=== PATIENT | female | born 1955 | race Caucasian/White ===

== ENCOUNTER → 2024-02-15 | Day surgery (SDC) | payer BC ==
--- NOTE | 2024-02-22 14:21 | MM ---
Reason for Exam: Post Procedure Mammogram. Risk Values: Perla 5 year model risk: 1.1%. NCI Lifetime model risk: 4.0%. Tissue Density: Left: The breasts are heterogeneously dense, which may obscure small masses. Pathology Description: Location: 3 o'clock. Marker Left Behind. Needle Type: Mammotome Cores: 6 Gauge: 13 The procedure of ultrasound guided core biopsy was explained to the patient. Benefits, alternatives, and risks were discussed. An informed consent was then obtained. The 9 mm hypoechoic mass at the 3:00 position left breast is identified and targeted for biopsy. The patient was placed in supine positioning for imaging and for the procedure. The overlying skin was prepped and draped in usual sterile fashion. Lidocaine was used as anesthetic into the skin and subcutaneous tissue up to area of concern in the left breast. Under ultrasound guidance, a 13-gauge vacuum-assisted mammotome Elite biopsy gun device was used to obtain 6 core samples. Following this, a butterfly clip was left in lesion. The patient tolerated the procedure well without any immediate complication. The patient was kept in the radiology department for short stay after the procedure and then discharged home in stable condition. Postprocedure mammogram: The patient was transferred to mammography for physician ordered post procedure mammogram for clip placement verification. Post procedure mammogram shows in satisfactory position. Patient with previous postsurgical and posttreatment change. IMPRESSION: Successful, uncomplicated ultrasound guided core biopsy of 3:00 left breast mass in patient with personal history of left breast cancer. Full pathology results to follow. Pathology Results: Result: Malignant, Invasive ductal carcinoma. Pathology and radiology were reviewed. Findings are concordant. LEFT BREAST, 3:00, NEEDLE CORE BIOPSY: Invasive poorly differentiated ductal carcinoma (Grade 3). See Surgical Pathology Cancer Case Summary. Overall Assessment: Malignant Assessment: MG diagnostic mammo LT wo CAD. - Left: Known biopsy proven malignancy, BI-RAD 6. Management: Surgical Consultation of the left breast. Electronically signed and approved by: Jessica Benitez M.D. Radiologist
== END ==
LOC: RADUSWWP 12:33
PROVIDERS: ATTEND Family Medicine
DX: C50.812 Malignant neoplasm of overlapping sites of left female breast (principal)
CPT/HCPCS: 88305; 88342; 88341; 77065; 19083; A4648

== ENCOUNTER → 2024-02-26 | Outpatient (CLI) | payer BC ==
--- NOTE | 2024-02-26 13:03 | P.GSCN ---
History of Present Illness Consult date: 02/26/24 Reason for Consult: left breast invasive ductal cancer Requesting physician: Girish Rogers History of present illness: Katherin is a 68 year old female seen in consultation for Dr. Rogers regarding biopsy proven left breast cancer. She had a bilateral mammogram on 01-06-2024. This led to a she had a left breast diagnostic mammogram on 01-22-2024. This revealed a 1 cm nodular opacity involving the outer quadrant position of the breast and ultrasound was recommended. The left breast ultrasound was performed on 01-27-2024. This revealed a hypoechoic irregular nodule at the 3 o'clock position 4 cm from the nipple. This was approximately 1 cm in greatest dimension. An ultrasound-guided core biopsy was performed of this on 02-15-2024. Pathology revealed an invasive poorly differentiated ductal carcinoma which was ER/ID positive and HER2 equivocal. It is grade 3. The patient is not complaining of any new lumps masses or nodules of concern in either breast. She tolerated the biopsy without any difficulty. She had a left breast cancer about 15 years ago, at about the age of 53 she was living in [place] at that time. She underwent a lumpectomy adn re-excision followed by radiation. She also did 5 years of tamoxifen, which ended many years ago. She did not have any chemotherapy. She does not have any medical records with respect to this. She has done well up until recently with the recent biopsy. She has never had other surgery on her breast. She has not had any recent trauma or infection of her breast. Caffeine: 2 cups/day nicotine: none/ stopped 40 years ago; used to smoke < 1 pack/week chocolate: weekly BCP: 3 years hormones: none Family History: paternal aunt: breast cancer Hormonal HIstory: menarche: 13 PO menopause: about 52 Surgical History: left breast lumpectomy Medical History: none Social History: nicotine: none alcohol: red wine daily drugs: none Review of Systems - Constitutional Reports sweats - EENT Eyes: denies blurred vision Ears: left: decreased hearing, deny: tinnitus Ears, nose, mouth and throat: Denies dysphagia - Breasts bilateral: as per HPI - Cardiovascular Denies chest pain, Denies shortness of breath - Respiratory Denies cough, Denies 7 - Gastrointestinal Reports constipation, Reports diarrhea - Genitourinary Genitourinary: Denies dysuria, Denies hematuria Menstruation: Reports postmenopausal - Musculoskeletal Reports myalgias - Integumentary Denies rash, Denies unusual bruising - Neurological Denies headaches, Denies syncope - Psychiatric Reports anxiety - Endocrine Reports fatigue - Hematologic/Lymphatic Reports as per HPI - Allergic/Immunologic Reports seasonal allergies Past Medical History Past Medical History: No Reported History, Cancer Additional Past Medical History / Comment(s): postional vertigo, seasonal allergies. 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 Right breast biopsy benign. Oral surgeries Past Anesthesia/Blood Transfusion Reactions: No Reported Reaction Past Psychological History: Anxiety Smoking Status: Former smoker Past Alcohol Use History: Occasional Additional Past Alcohol Use History / Comment(s): quit smoking in her 20's Past Drug Use History: None Reported Medications and Allergies Home Medications Medication Instructions Recorded Confirmed Type ALPRAZolam [Xanax] 0.25 mg PO BID PRN 02/08/24 02/08/24 History PARoxetine HCL [Paxil] 20 mg PO DAILY 02/08/24 02/26/24 History Allergies Allergy/AdvReac Type Severity Reaction Status Date / Time No Known Allergies Allergy Verified 02/26/24 12:30 Surgical - Exam - General no distress - Eyes normal ocular movement - Neck trachea midline - Respiratory normal respiratory effort, clear to auscultation - Cardiovascular Rhythm: regular Heart Sounds: normal: S1, S2 - Abdomen Abdomen: soft, non tender, no guarding, no rigid, no rebound - Integumentary normal turgor - Neurologic no disoriented, no combative - Musculoskeletal normal gait - Psychiatric oriented to time, oriented to person, oriented to place, speech is normal, memory intact Breast Exam: BRA: 36A inspection: post op changes left breast/ assymetry related to prior left breast cancer palpation: right breast: Multi positional exam fibrocystic changes no dominant masses or nodules of concern Right axilla: No adenopathy of concern Left breast: Postsurgical and radiation changes well-healed scar from prior lumpectomy no dominant masses or nodules of concern appreciated Puncture site from recent core biopsy clean and dry Left axilla: No adenopathy of concern Results Mammogram and ultrasound personally reviewed with Dr. Benitez There is approximately a 1 cm lesion in the lateral upper outer quadrant area of the left breast corresponding with that which was biopsied/invasive ductal carcinoma ER/ID positive HER2 equivocal Grade 3 Assessment and Plan Assessment: Impression: Left breast invasive ductal carcinoma T1 N0 M0 ER positive ID positive HER2 question G2 Prior left breast cancer treated with lumpectomy/radiation therapy/tamoxifen records are not available this was over 15 years ago Plan: Presentation of case at tumor board Consider genetic testing Will discuss treatment options with the patient CC: Dr. Rogers
[2024-02-26 13:23] VITALS: BP 149/80; PULSE 90; RESP 17; TEMP 97.9
== END ==
LOC: WWCWWP 11:30
PROVIDERS: ATTEND Surgery
DX: C50.912 Malignant neoplasm of unspecified site of left female breast (principal); N63.41 Unspecified lump in right breast, subareolar; Z17.0 Estrogen receptor positive status [ER+]; Z80.3 Family history of malignant neoplasm of breast; Z87.891 Personal history of nicotine dependence; Z98.890 Other specified postprocedural states

== ENCOUNTER → 2024-03-04 | Outpatient (CLI) | payer BC ==
--- NOTE | 2024-03-04 13:23 | USB ---
Reason for Exam: Clinical finding. Patient History: Breast cancer, left, age 68. 02/15/2024, Malignant US biopsy breast VAD LT on the left side. Technique: Method: Targeted. Prior Study Comparison: 02/15/2024 Left MG diagnostic mammo LT wo CAD., [facility]. Findings: The axilla of the left breast was scanned. No solid or cystic masses are identified. Normal-appearing left axillary lymphadenopathy is present. No suspicious cortex. Overall Assessment: Negative, BI-RAD 1 Management: Surgical Consultation of both breasts. A clinical breast exam by your physician is recommended on an annual basis and results should be correlated with mammographic findings. This exam should not preclude additional follow-up of suspicious palpable abnormalities. Results were given to the patient verbally at the time of exam. Electronically signed and approved by: Hany Boggs D.O. Radiologis
== END | disposition home or self-care (01) ==
LOC: RADUSWWP 12:58
PROVIDERS: ATTEND Surgery
DX: N63.20 Unspecified lump in the left breast, unspecified quadrant (principal)

== ENCOUNTER → 2024-04-07 | Outpatient (CLI) | payer BC, MEDICARE ==
[2024-04-07 13:57] VITALS: BP 168/92; PULSE 70; RESP 17; TEMP 97.9
--- NOTE | 2024-04-07 14:18 | P.BCPN ---
Subjective Progress Note Date: 04/07/24 History of Present Illness Consult date: 04-07-24 Reason for Consult: left breast invasive ductal cancer Requesting physician: Girish Rogers History of present illness: Katherin is a 68 year old female seen in consultation for Dr. Rogers regarding biopsy proven left breast cancer. She had a bilateral mammogram on 01-06-2024. This led to a she had a left breast diagnostic mammogram on 01-22-2024. This revealed a 1 cm nodular opacity involving the outer quadrant position of the breast and ultrasound was recommended. The left breast ultrasound was performed on 01-27-2024. This revealed a hypoechoic irregular nodule at the 3 o'clock position 4 cm from the nipple. This was approximately 1 cm in greatest dimension. An ultrasound-guided core biopsy was performed of this on 02-15-2024. Pathology revealed an invasive poorly differentiated ductal carcinoma which was ER/W[place] positive and HER2 equivocal. It is grade 3. The patient is not complaining of any new lumps masses or nodules of concern in either breast. She tolerated the biopsy without any difficulty. She had a left breast cancer about 15 years ago, at about the age of 53 she was living in [place] at that time. She underwent a lumpectomy adn re-excision followed by radiation. She also did 5 years of tamoxifen, which ended many years ago. She did not have any chemotherapy. She does not have any medical records with respect to this. She has done well up until recently with the recent biopsy. She has never had other surgery on her breast. She has not had any recent trauma or infection of her breast. Caffeine: 2 cups/day nicotine: none/ stopped 40 years ago; used to smoke < 1 pack/week chocolate: weekly BCP: 3 years hormones: none Family History: paternal aunt: breast cancer Hormonal HIstory: menarche: 13 PO menopause: about 52 Surgical History: left breast lumpectomy Medical History: none Social History: nicotine: none alcohol: red wine daily drugs: none Review of Systems - Constitutional Reports sweats - EENT Eyes: denies blurred vision Ears: left: decreased hearing, deny: tinnitus Ears, nose, mouth and throat: Denies dysphagia - Breasts bilateral: as per HPI - Cardiovascular Denies chest pain, Denies shortness of breath - Respiratory Denies cough - Gastrointestinal Reports constipation, Reports diarrhea - Genitourinary Genitourinary: Denies dysuria, Denies hematuria Menstruation: Reports postmenopausal - Musculoskeletal Reports myalgias - Integumentary Denies rash, Denies unusual bruising - Neurological Denies headaches, Denies syncope - Psychiatric Reports anxiety - Endocrine Reports fatigue - Hematologic/Lymphatic Reports as per HPI - Allergic/Immunologic Reports seasonal allergies Past Medical History Past Medical History: No Reported History, Cancer Additional Past Medical History / Comment(s): postional vertigo, seasonal allergies. 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 Right breast biopsy benign. Oral surgeries Past Anesthesia/Blood Transfusion Reactions: No Reported Reaction Past Psychological History: Anxiety Smoking Status: Former smoker Past Alcohol Use History: Occasional Additional Past Alcohol Use History / Comment(s): quit smoking in her 20's Past Drug Use History: None Reported Medications and Allergies Home Medications Medication Instructions Recorded Confirmed Type ALPRAZolam [Xanax] 0.25 mg PO BID PRN 02/08/24 02/08/24 History PARoxetine HCL [Paxil] 20 mg PO DAILY 02/08/24 02/26/24 History Allergies Allergy/AdvReac Type Severity Reaction Status Date / Time No Known Allergies Allergy Verified 02/26/24 12:30 Objective - Vital Signs Vital Signs: Vital Signs Temp 97.9 F 04/07/24 13:54 Pulse 70 04/07/24 13:54 Resp 17 04/07/24 13:54 BP 168/92 04/07/24 13:54 Pulse Ox 97 04/07/24 13:54 FiO2 Intake & Output 04/06/24 04/07/24 04/07/24 18:59 06:59 18:59 Weight 62.142 kg - Constitutional General appearance: Present: cooperative - EENT Eyes: Present: EOMI ENT: Present: hearing grossly normal - Neck Neck: Present: normal ROM - Respiratory Respiratory: bilateral: CTA - Cardiovascular Heart sounds: normal: S1, S2 - Integumentary Integumentary: Present: normal turgor - Musculoskeletal Musculoskeletal: Present: gait normal - Psychiatric Psychiatric: Present: A&O x's 3, appropriate affect, intact judgment & insight - Additional findings Additional findings: Breast Exam: BRA: 36A inspection: post op changes left breast/ asymmetry related to prior left breast cancer palpation: right breast: Multi positional exam fibrocystic changes no dominant masses or nodules of concern Right axilla: No adenopathy of concern Left breast: Postsurgical and radiation changes well-healed scar from prior lumpectomy no dominant masses or nodules of concern appreciated Puncture site from recent core biopsy clean and dry Left axilla: No adenopathy of concern Assessment and Plan Plan: Impression: Left breast invasive ductal carcinoma T1 N0 M0 ER positive WY positive HER2 question G2 Prior left breast cancer treated with lumpectomy/radiation therapy/tamoxifen r ecords are not available this was over 15 years ago Plan: Presentation of case at tumor board done on 03-22-24 Consider genetic testing done VUS left breast mastectomy and SNB possible axillary node dissection Case was presented at tumor board on 03-22-2024. The patient has been seen by medical oncology, and she did have genetic testing done which showed a variant of uncertain significance. The recommendation as per tumor board was for a mastectomy with sentinel lymph node biopsy. Postprocedure she will receive endocrine therapy. I have attempted to call the patient and been unsuccessful in reaching her. Her surgery is at this time scheduled for April 19, 2024. Oncotype testing will be done on the surgical specimen. CC: Dr. Rogers Prep Education Provided - Preoperative Education Given Pre-Op Kit Given Date: 04/07/24 - Functional Assessment Performed?: Yes (arm abduction test) - Smoking Cessation Education Provided?: No (nonsmoker)
== END ==
LOC: WWCWWP 13:27
PROVIDERS: ATTEND Surgery
DX: C50.912 Malignant neoplasm of unspecified site of left female breast (principal); Z17.0 Estrogen receptor positive status [ER+]; Z80.3 Family history of malignant neoplasm of breast; Z48.817 Encounter for surgical aftercare following surgery on the skin and subcutaneous tissue; Z87.891 Personal history of nicotine dependence

== ENCOUNTER 2024-04-19 07:51 | Day surgery (SDC) | payer BC ==
[~2024-04-19 07:51] MED LIST: HYDROmorphone 0.5 MG/0.5 ML SYRINGE IVP PRN; MIDAZOLAM 2 MG/2 ML VIAL IV PRN
[2024-04-19] MEDS: LACTATED RINGERS 1,000 ML IV SCH (08:46)
[2024-04-19] MEDS: DEXAMETHASONE SOD PHOSPHATE 4 MG/ML 1 ML VIAL IV ONE (08:51)
[2024-04-19] MEDS: ONDANSETRON 4 MG/2 ML VIAL IVP ONE (08:51)
[2024-04-19] MEDS: HEPARIN SODIUM,PORCINE 5,000 UNIT/ML 1 ML VIAL SQ PRN (08:52)
[2024-04-19] MEDS: ACETAMINOPHEN TAB 500 MG TAB PO PRN (08:52)
--- NOTE | 2024-04-19 10:09 | P.NAPBC ---
NAPBC Queries - NAPBC Queries Was patient's case review presented at [facility] tumor board? If no, comment.: Yes Was patient's pathology reviewed at [facility]? If no, comment.: Yes Was breast conservation surgery offered? If no, comment.: No (prior left breast cancer) Was sentinel node biopsy offered? If no, comment.: Yes (discussed will atempt ) Was diagnosis confirmed by percutaneous core biopsy? If no, comment.: Yes Is patient mastectomy patient?: Yes Was a preop referral to reconstructive surgeon offered?: Yes (patient declined) Clinical Stage: [id number]+Her2-G3 left breast invasive ductal cancer
[2024-04-19] MEDS ORDERED: NEOSTIGMINE 1 MG/ML 10 ML VIAL ONE (10:21)
[2024-04-19] MEDS ORDERED: ROCURONIUM 10 MG/ML (5 ML VIAL) IV ONE (10:21)
[2024-04-19] MEDS ORDERED: HYDROmorphone (PF) 1 MG/ML ONE (10:21)
[2024-04-19] MEDS ORDERED: SUCCINYLCHOLINE CHLORIDE 200 MG/10 ML VIAL IV ONE (10:21)
[2024-04-19] MEDS ORDERED: GLYCOPYRROLATE 0.2 MG/ML 2 ML VIAL ONE (10:21)
[2024-04-19] MEDS ORDERED: PROPOFOL 10 MG/ML 20 ML VIAL IV ONE (10:21)
[2024-04-19] MEDS ORDERED: MIDAZOLAM 2 MG/2 ML VIAL ONE (10:21)
[2024-04-19] MEDS ORDERED: LIDOCAINE 4% LTA KIT (4 ML) TOPICAL ONE (10:21)
[2024-04-19] MEDS ORDERED: fentaNYL (PF) 50 MCG/ML 2 ML AMP ONE (10:21)
[2024-04-19] MEDS ORDERED: LIDOCAINE 1% INJ 10MG/ML (20 ML MDV) ONE (10:21)
[2024-04-19] MEDS ORDERED: ePHEDrine 50 MG/ML 1 ML VIAL ONE (10:21)
[2024-04-19] MEDS ORDERED: KETOROLAC 15 MG/ML 1 ML VIAL ONE (10:21)
[2024-04-19] MEDS: LIDOCAINE 1% INJ 10MG/ML (20 ML MDV) SQ ONE (12:00)
--- NOTE | 2024-04-19 12:04 | P.BCAON ---
Date of Procedure: 04/19/24 Preoperative Diagnosis: Left breast invasive ductal carcinoma Postoperative Diagnosis: Same Procedure(s) Performed: Left mastectomy, left sentinel node biopsy Anesthesia: WILMER Surgeon: Wendy Jain Estimated Blood Loss (ml): 5 IV fluids (ml): 700 Pathology: other (Left breast and sentinel node) Condition: stable Disposition: same day Indications for Procedure: Left breast invasive ductal carcinoma Operative Findings: Left breast fibrofatty tissue/status post radiation Description of Procedure: The patient was taken to the operating room and following induction of anesthesia the neoprobe was used to interrogate the axilla. An area of increased radioactivity was identified. Therefore the left breast and axilla were prepped and draped in a sterile fashion. Markings were placed for superior and inferior skin flaps. The superior skin flap was developed. It was taken down to the pectoralis muscle. In a similar fashion the inferior skin flap was developed and taken down to the pectoralis muscle. The tissue was removed from medial to lateral being careful to maintain hemostasis using the electrocautery device. Medially a vessel was suture-ligated. The harmonic scalpel was also used as needed. Dissection was performed down to the lateral border of the pectoralis muscle. The tissue was removed. Using the neoprobe area of greatest radioactivity was identified. This was grasped using an Allis clamp. This was resected. The 10-second count on this lymph node was 4343. The background 10- second count was 16. No palpable or additional radioactive lymph nodes of concern were identified. After we are sure that hemostasis was attained the wound was well irrigated. The specimen had a short suture placed superiorly on the mastectomy and a long suture placed laterally. Surgicel in powder form was placed. 2 ALICE drains were placed. The wound was again well irrigated. The deep tissues were closed using interrupted 3-0 Vicryl sutures. The subcutaneous tissue was closed using 3-0 Vicryl suture. The skin was closed using 4-0 Monocryl. The patient had 10 cc of 1% lidocaine injected into the incision. The patient tolerated the procedure in stable condition. All instrument and sponge counts were correct at the end of the case. - Sentinal Node Biopsy Operation performed with curative intent: Yes Tracer(s) used in upfront surgery (non-neoadjuvant): radioactive tracer Tracer(s) used in the neoadjuvant setting: N/A All nodes present at end of dye-filled channel removed: N/A All significantly radioactive nodes were removed: Yes All palpably suspicious nodes were removed: Yes Clipped positive nodes identified and removed: N/A
[2024-04-19] MEDS ORDERED: NALOXONE 0.4 MG/ML 1 ML VIAL IV PRN (12:05)
[2024-04-19] MEDS ORDERED: ONDANSETRON 4 MG/2 ML VIAL IVP PRN (12:05)
[2024-04-19] MEDS ORDERED: HYDROmorphone 1 MG/ML 1 ML SYRINGE IVP PRN (12:05)
--- NOTE | 2024-04-19 16:14 | NM ---
EXAMINATION TYPE: NM sentinel node injection DATE OF EXAM: 04/19/2024 COMPARISON: NONE INDICATION: Abnormal mammogram. Informed consent was obtained. A timeout was performed. The area around the left nipple was cleansed with alcohol. In a single dose, a total of 512 uCi Adolfo hnetium 99m Tilmanocept was injected. The patient tolerated the procedure very well. IMPRESSION: 1. Successful injection for sentinel node evaluation.
[2024-04-19] MEDS: HYDROcodone/APAP 5-325MG 1 EACH TAB PO PRN (16:54)
[2024-04-19] MEDS: HEPARIN SODIUM,PORCINE 5,000 UNIT/ML 1 ML VIAL SQ SCH (21:35)
[2024-04-20] MEDS ORDERED: ALPRAZolam 0.25 MG TAB PO PRN (04:54)
[2024-04-20] MEDS: SODIUM CHLORIDE 0.9% 1,000 ML IV SCH (07:27)
[2024-04-20 07:42] VITALS: BP 120/68; PULSE 69; RESP 18; TEMP 98.5
[2024-04-20] MEDS: PARoxetine 20 MG TAB PO SCH (09:05)
[2024-04-20] MEDS: FLUTICASONE NASAL 50MCG/SPRAY 16GM BTL NASAL SCH (09:06)
--- NOTE | 2024-04-20 11:27 | P.PN ---
Subjective Progress Note Date: 04/20/24 Principal diagnosis: Postop day #1 left mastectomy The patient is a 68-year-old white female status post left mastectomy. She is doing well postoperatively with no complaints. ALICE output is serosanguineous and approximately 40 cc total. Objective - Vital Signs Vital signs: Vital Signs Temp 98.5 F 04/20/24 07:41 Pulse 69 04/20/24 07:41 Resp 18 04/20/24 07:41 BP 120/68 04/20/24 07:41 Pulse Ox 97 04/20/24 03:55 FiO2 Intake & Output 04/19/24 04/20/24 04/20/24 18:59 06:59 18:59 Intake Total 750 1200 Output Total 275 440 Balance 475 760 Weight 62.4 kg Intake: IV 750 Oral 1200 Output: Drainage 20 40 Left Chest 20 40 Urine 250 400 Estimated Blood Loss 5 Other: # Voids 1 1 - Constitutional General appearance: Present: cooperative - EENT Eyes: Present: EOMI ENT: Present: hearing grossly normal - Respiratory Respiratory: bilateral: CTA - Cardiovascular Heart sounds: normal: S1, S2 - Integumentary Integumentary Comment(s): Incision clean and dry small amount of fluid under the inferior flap - Psychiatric Psychiatric: Present: A&O x's 3, appropriate affect, intact judgment & insight Assessment and Plan Assessment: Impression: Patient postop day #1 left mastectomy Patient had a small seroma under the left flap which was aspirated via stripping the ALICE drains with complete resolution of the seroma Plan: Teach patient drain care Await CBC results and if hemoglobin stable discharge home Follow-up 1 week, follow-up sooner any questions or concerns CC Dr. Rogers
[2024-04-20 11:41] LABS: Basophils % (A) 0 %; Eosinophils # (A) 0.1 k/uL (0-0.7); Eosinophils % (A) 1 %; HCT 37.2 % (34.0-46.0); HGB 11.5 gm/dL (11.4-16.0); Hypochromasia Slight; Lymphocytes # (A) 1.7 k/uL (1.0-4.8); Lymphocytes % (A) 34 %; MCH 28.5 pg (25.0-35.0); Mean Platelet Volume 9.4; Monocytes # (A) 0.3 k/uL (0-1.0); Monocytes % (A) 6 %; Neutrophils % (A) 58 %; Platelet Count 167 k/uL (150-450); RBC 4.05 m/uL (3.80-5.40); RDW 12.6 % (11.5-15.5); WBC 5.1 k/uL (3.8-10.6)
--- NOTE | 2024-04-21 10:35 | P.CONS ---
History of Present Illness - Reason for Consult Consult date: 04/20/24 Medical management, status post left breast mastectomy - History of Present Illness This is a very pleasant 68-year-old female who recently underwent left mastectomy with Dr. Jain yesterday. Patient reports she follows with Dr. Rogers in the outpatient setting with past medical history of BPPV, seasonal allergies, and previous breast cancer, anxiety. Patient is a former smoker reports drinking alcohol daily and denies any other illicit drug use. Patient reports she did have presurgical clearance for this procedure. On exam patient is doing well continues with output in the ALICE drain and repeat CBC is stable at 11.5 and discussing discharge planning. Patient will continue with ALICE drains in the outpatient setting and home care is being arranged. Patient is afebrile with no reported chest pain or shortness of breath other than chest wall tenderness. Patient does have abdominal binder reports her pain is relatively controlled. Patient reports is passing gas but has not had a bowel movement. REVIEW OF SYSTEMS: CONSTITUTIONAL: No fever, no malaise, no fatigue. HEENT: No recent visual problems or hearing problems. Denied any sore throat. CARDIOVASCULAR: No chest pain, orthopnea, PND, no palpitations, no syncope. PULMONARY: No shortness of breath, no cough, no hemoptysis. Reports of some ch est wall discomfort on the left GASTROINTESTINAL: No diarrhea, no nausea, no vomiting, no abdominal pain. NEUROLOGICAL: No headaches, no weakness, no numbness. HEMATOLOGICAL: Denies any bleeding or petechiae. GENITOURINARY: Denies any burning micturition, frequency, or urgency. MUSCULOSKELETAL/RHEUMATOLOGICAL: Denies any joint pain, swelling, or any muscle pain. ENDOCRINE: Denies any polyuria or polydipsia. The rest of the 14-point review of systems is negative. PHYSICAL EXAMINATION: GENERAL: The patient is alert and oriented x3, not in any acute distress. Well developed, well nourished. HEENT: Pupils are round and equally reacting to light. EOMI. No scleral icterus. No conjunctival pallor. Normocephalic, atraumatic. No pharyngeal erythema. No thyromegaly. CARDIOVASCULAR: S1 and S2 present. No murmurs, rubs, or gallops. PULMONARY: Chest is clear to auscultation, no wheezing or crackles. Binder noted around the left breast with ALICE drains and serous fluid noted ABDOMEN: Soft, nontender, nondistended, normoactive bowel sounds. No palpable organomegaly. MUSCULOSKELETAL: No joint swelling or deformity. EXTREMITIES: No cyanosis, clubbing, or pedal edema. NEUROLOGICAL: Gross neurological examination did not reveal any focal deficits. SKIN: No rashes. Assessment: Status post left breast mastectomy History of breast cancer on the left History of anxiety History of BPPV Seasonal allergies Former smoker Daily alcohol use GI prophylaxis DVT prophylaxis Full code Plan: Patient is status post left breast mastectomy with Dr. Jain Patient has incentive spirometer at the bedside and encouraged the patient to continue using at least 10 times every hour while awake Patient has home medications and follows with Dr. Rogers outpatient and did undergo presurgical clearance Patient hemoglobin is stable and will continue with ALICE drains and arranging for discharge planning including home care Patient is medically stable once cleared by Dr. Jain. Thank you kindly for this consultation. We will continue to follow with surgery during hospitalization. The impression and plan of care has been dictated by Verona Shannon, Nurse Practitioner as directed. Dr. Julio César MD I have performed a history and examination and MDM of this patient, discussed the same with the dictator, and agree with the dictator's assessment and plan as written ,documented as a scribe. Based on total visit time, I have performed more than 50% of the visit. Past Medical History Past Medical History: Cancer Additional Past Medical History / Comment(s): postional vertigo, seasonal allergies. 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 History of Any Multi-Drug Resistant Organisms: None Reported Additional Past Surgical History / Comment(s): Left breast biopsy, with lumpe ctomy 2007. Right breast biopsy benign. Oral surgeries Past Anesthesia/Blood Transfusion Reactions: No Reported Reaction Additional Past Anesthesia/Blood Transfusion Reaction / Comm: no blood transfusions Smoking Status: Former smoker - Past Family History Mother Family Medical History: No Reported History Medications and Allergies Home Medications Medication Instructions Recorded Confirmed Type ALPRAZolam [Xanax] 0.25 mg PO BID PRN 02/08/24 04/19/24 History PARoxetine HCL [Paxil] 20 mg PO DAILY 02/08/24 04/19/24 History Calcitonin Nasal [Fortical 1 spray NASAL HS 02/26/24 04/19/24 History (Miacalcin)] Fluticasone Nasal [place] [Flonase 1 spray NASAL DAILY 02/26/24 04/19/24 History Nasal [place]] Otc Benadryl 1 tab PO DIRECTED PRN 04/13/24 04/19/24 History Unk Vitamin E 1 tab PO DAILY 04/13/24 04/13/24 History oxyCODONE HCL [OxyIR] 5 mg PO Q6H PRN #5 tab 04/19/24 Rx Allergies Allergy/AdvReac Type Severity Reaction Status Date / Time No Known Allergies Allergy Verified 04/19/24 08:32 Physical Exam Vitals: Vital Signs Temp Pulse Resp BP BP Pulse Ox 04/20/24 07:41 98.5 F 69 18 120/68 04/20/24 03:55 98.1 F 78 16 137/83 97 04/20/24 00:00 98.1 F 66 15 105/65 98 04/19/24 20:00 98.5 F 77 16 117/77 98 04/19/24 16:00 97 F L 75 16 135/70 100 04/19/24 15:30 75 15 124/58 100 04/19/24 15:00 81 16 124/65 99 04/19/24 14:30 74 15 109/78 98 04/19/24 14:15 73 15 124/68 96 04/19/24 14:00 84 15 109/78 98 04/19/24 13:45 74 15 112/66 96 04/19/24 13:30 98.4 F 79 15 121/77 97 04/19/24 13:10 93 15 138/68 97 04/19/24 12:55 75 16 147/70 97 04/19/24 12:40 89 17 148/68 93 L 04/19/24 12:25 98.1 F 59 L 16 154/72 92 L Intake and Output 04/19/24 04/20/24 04/20/24 22:59 06:59 14:59 Intake Total 720 480 Output Total 690 20 Balance 30 460 Intake: Oral 720 480 Output: Drainage 40 20 Left Chest 40 20 Urine 650 Other: # Voids 1 1 Results CBC & Chem 7: 04/20/24 07:45
== END 2024-04-20 12:35 | disposition home or self-care (01) ==
LOC: OR 07:51 → 4FBP 12:12 → OR 04-20 12:35
PROVIDERS: ATTEND Surgery
DX: D05.12 Intraductal carcinoma in situ of left breast (principal); F41.9 Anxiety disorder, unspecified; Z79.899 Other long term (current) drug therapy
CPT/HCPCS: 19301; 38500; 85025; 88342; 88307; 88309; 88341; 38792; A9520; J2250; J0330; J1644 ×2; J1100; J2710; J0690; J2405; J2001; J3010; J1170; J1885; J2704; J1596

== ENCOUNTER → 2024-04-28 | Outpatient (CLI) | payer BC ==
[2024-04-28 10:19] VITALS: BP 156/83; PULSE 78; RESP 16; TEMP 98.1
--- NOTE | 2024-04-28 10:29 | P.BCPO ---
Progress Note - Text Progress Note Date: 04/28/24 Katherin is a 68 year old female status post a left mastectomy and SNB on 04-19-24. Tumor 10 mm G3, all margins (-). SNB (-). She is doing well post-operatively. Examination: lungs: Clear Heart: Regular rate and rhythm Incision: Clean and dry ALICE output minimal both drains Impression: Patient doing well postoperative Plan: Follow-up medical oncology Follow-up here 4 months CC: Dr. Rogers
== END ==
LOC: WWCWWP 09:08
PROVIDERS: ATTEND Surgery
DX: Z04.89 Encounter for examination and observation for other specified reasons (principal); Z85.3 Personal history of malignant neoplasm of breast; Z90.12 Acquired absence of left breast and nipple

== ENCOUNTER → 2024-08-19 | Outpatient (CLI) | payer MEDICARE, BC ==
--- NOTE | 2024-08-19 11:27 | P.PN ---
Subjective Progress Note Date: 08/19/24 left breast invasive ductal cancer [id number]+Her2(-)G3 Addendum entered and electronically signed by Wendy Jain MD 04/13/24 15:50: Plan: Left breast mastectomy, left breast sentinel node injection, left breast sentinel node biopsy, possible left axillary node dissection Original Note: Subjective Progress Note Date: 04/07/24 History of Present Illness Consult date: 04-07-24 Reason for Consult: left breast invasive ductal cancer Requesting physician: Girish Rogers History of present illness: Katherin is a 68 year old female seen in consultation for Dr. Rogers regarding biopsy proven left breast cancer. She had a bilateral mammogram on 01-06-2024. This led to a she had a left breast diagnostic mammogram on 01-22-2024. This revealed a 1 cm nodular opacity involving the outer quadrant position of the breast and ultrasound was recommended. The left breast ultrasound was performed on 01-27-2024. This revealed a hypoechoic irregular nodule at the 3 o'clock position 4 cm from the nipple. This was approximately 1 cm in greatest dimension. An ultrasound-guided core biopsy was performed of this on 02-15-2024. Pathology revealed an invasive poorly differentiated ductal carcinoma which was ER/AZ positive and HER2 equivocal. It is grade 3. subsequently Her 2-. The patient is not complaining of any new lumps masses or nodules of concern in either breast. She tolerated the biopsy without any difficulty. She had a left breast cancer about 15 years ago, at about the age of 53 she was living in [place] at that time. She underwent a lumpectomy adn re-excision followed by radiation. She also did 5 years of tamoxifen, which ended many years ago. She did not have any chemotherapy. She does not have any medical records with respect to this. She has done well up until recently with the recent biopsy. She has never had other surgery on her breast. She has not had any recent trauma or infection of her breast. The patient on 04-19-24 underwent a left mastectomy. 1 cm IDC all margins -, 0/1 nodes -. Patient treated with anestrazole. Started on denosumab. note medical oncology 08-01-24 reviewed She is not complaining of any new lumps masses or nodules of concern in the right breast or in her left chest wall. Caffeine: 2 cups/day nicotine: none/ stopped 40 years ago; used to smoke < 1 pack/week chocolate: weekly BCP: 3 years hormones: none Family History: paternal aunt: breast cancer Hormonal History: menarche: 13 PO menopause: about 52 Surgical History: left breast lumpectomy Medical History: none Social History: nicotine: none alcohol: red wine daily drugs: none Review of Systems - Constitutional Reports sweats - EENT Eyes: denies blurred vision Ears: left: decreased hearing, deny: tinnitus Ears, nose, mouth and throat: Denies dysphagia - Breasts bilateral: as per HPI - Cardiovascular Denies chest pain, Denies shortness of breath - Respiratory Denies cough - Gastrointestinal Reports constipation, Reports diarrhea - Genitourinary Genitourinary: Denies dysuria, Denies hematuria Menstruation: Reports postmenopausal - Musculoskeletal Reports myalgias - Integumentary Denies rash, Denies unusual bruising - Neurological Denies headaches, Denies syncope - Psychiatric Reports anxiety - Endocrine Reports fatigue - Hematologic/Lymphatic Reports as per HPI - Allergic/Immunologic Reports seasonal allergies Past Medical History Past Medical History: No Reported History, Cancer Additional Past Medical History / Comment(s): postional vertigo, seasonal allergies. 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 Right breast biopsy benign. Oral surgeries Past Anesthesia/Blood Transfusion Reactions: No Reported Reaction Past Psychological History: Anxiety Smoking Status: Former smoker Past Alcohol Use History: Occasional Additional Past Alcohol Use History / Comment(s): quit smoking in her 20's Past Drug Use History: None Reported Medications and Allergies Home Medications Medication Instructions Recorded Confirmed Type ALPRAZolam [Xanax] 0.25 mg PO BID PRN 02/08/24 02/08/24 History PARoxetine HCL [Paxil] 20 mg PO DAILY 02/08/24 02/26/24 History Allergies Allergy/AdvReac Type Severity Reaction Status Date / Time No Known Allergies Allergy Verified 02/26/24 12:30 Objective - Constitutional General appearance: Present: cooperative - EENT Eyes: Present: EOMI ENT: Present: hearing grossly normal - Neck Neck: Present: normal ROM - Respiratory Respiratory: bilateral: CTA - Cardiovascular Rhythm: regular Heart sounds: normal: S1, S2 - Integumentary Integumentary: Present: normal turgor - Musculoskeletal Musculoskeletal: Present: gait normal - Psychiatric Psychiatric: Present: A&O x's 3, appropriate affect, intact judgment & insight - Additional findings Additional findings: Breast Exam: Bra: question cup size Inspection: Chest wall incision clean and dry right breast grade 2/3 ptosis Palpation: Right breast: Multi positional exam no dominant masses or nodules of concern Right axilla: No adenopathy of concern Left chest wall: Incision clean and dry no evidence of any recurrent disease Left axilla: No adenopathy of concern Assessment and Plan Assessment: Plan: Patient's status post left mastectomy for a 2 cm invasive ductal carcinoma lymph node negative, ER AZ positive, HER2 negative. The patient had previously had left breast DCIS treated with a lumpectomy and radiation therapy and 5 years of tamoxifen in the past. No evidence of any recurrent cancer on today's exam Plan: Mastectomy bra Continue anastrozole Follow-up in 6 months Right breast mammogram January 2025 with appointment at that time continue follow up with medical oncology
[2024-08-19 11:28] VITALS: BP 144/85; PULSE 77; RESP 17; TEMP 97.6
== END ==
LOC: WWCWWP 10:20
PROVIDERS: ATTEND Surgery
DX: Z48.817 Encounter for surgical aftercare following surgery on the skin and subcutaneous tissue (principal); Z85.3 Personal history of malignant neoplasm of breast; Z80.3 Family history of malignant neoplasm of breast; Z87.891 Personal history of nicotine dependence; Z90.12 Acquired absence of left breast and nipple; Z86.000 Personal history of in-situ neoplasm of breast

== ENCOUNTER → 2025-01-23 | Outpatient (CLI) | payer MEDICARE, BC ==
--- NOTE | 2025-01-23 11:11 | MM ---
Reason for Exam: Hx of breast cancer, mastectomy. Last screening mammogram was performed 12 month(s) ago. Patient History: Menarche at age 16. Patient has no children. Postmenopausal. Breast cancer, left, age 68. Previous chest radiation therapy at age 52. 04/19/2024, Mastectomy on the Left side. 02/15/2024, Malignant US biopsy breast VAD LT on the left side. Maternal aunt had breast cancer, age 55. Maternal grandmother had breast cancer, age 90. Maternal aunt had breast cancer, age 55. Prior Study Comparison: 10/17/2022 Bilateral MG screening mammo w CAD - 2, Unknown. 01/06/2024 Bilateral MG 3D screening mammo w/cad, Unknown. 01/22/2024 Left MG diagnostic mammo LT w CAD - 2, Unknown. 02/15/2024 Left MG diagnostic mammo LT wo CAD., [facility]. Tissue Density: Right: The breasts are heterogeneously dense, which may obscure small masses. Findings: Analyzed By CAD. Mammotome biopsy clip in the right breast redemonstrated. At this level level there is stable circumscribed 2.0 cm oval mass. No new cluster of microcalcification or distortion in the right breast. Overall Assessment: Benign, BI-RAD 2 Management: Screening Mammogram of the right breast in 1 year. Return to routine follow-up.. Results were given to the patient verbally at the time of exam. Patient should continue monthly self-breast exams. A clinical breast exam by your physician is recommended on an annual basis. This exam should not preclude additional follow-up of suspicious palpable abnormalities. Note on Prela scores and lifetime risk: 1. A Perla score greater than 3% is considered moderate risk. If this is the case, consider specialist referral to assess eligibility for a risk reducing agent. 2. If overall lifetime risk for the development of breast cancer is 20% or higher, the patient may qualify for future screening with alternating mammogram and breast MRI. [facility], , 01/23/2025 11:09 AM. Electronically signed and approved by: Jean-Claude Viveros M.D.
== END | disposition home or self-care (01) ==
LOC: RADMAMWWP 10:39
PROVIDERS: ATTEND Surgery
DX: R92.331 Mammographic heterogeneous density, right breast (principal); Z85.3 Personal history of malignant neoplasm of breast; Z78.0 Asymptomatic menopausal state; Z80.3 Family history of malignant neoplasm of breast
CPT/HCPCS: 77065; G0279; 77061

== ENCOUNTER → 2025-01-27 | Outpatient (CLI) | payer MEDICARE, BC ==
[2025-01-27 09:46] VITALS: BP 149/72; PULSE 95; RESP 18; TEMP 98.2
--- NOTE | 2025-01-27 10:31 | P.PN ---
Subjective Progress Note Date: 01/27/25 Principal diagnosis: left breast invasive ductal cancer [id number]+Pr+Her2(-)G3; 2023 recurrent from 15 years ago 01-27-25 History of Present Illness: Reason for Consult: left breast invasive ductal cancer; 2023 Requesting physician: Girish Rogers History of present illness: Katherin is a 69 year old female seen in consultation for Dr. Rogers in 2023 regarding biopsy proven left breast cancer. She had a bilateral mammogram on 01-06-2024. This led to a she had a left breast diagnostic mammogram on 01-22-2024. This revealed a 1 cm nodular opacity involving the outer quadrant position of the breast and ultrasound was recommended. The left breast ultrasound was performed on 01-27-2024. This revealed a hypoechoic irregular nodule at the 3 o'clock position 4 cm from the nipple. This was approximately 1 cm in greatest dimension. An ultrasound-guided core biopsy was performed of this on 02-15-2024. Pathology revealed an invasive poorly differentiated ductal carcinoma which was ER/ME positive and HER2 (-). It is grade 3. The patient was not complaining of any new lumps masses or nodules of concern in either breast. She tolerated the biopsy without any difficulty. She had a left breast cancer about 15 years ago, at about the age of 53 she was living in [place] at that time. She underwent a lumpectomy and re-excision followed by radiation. She also did 5 years of tamoxifen, which ended many years ago. She did not have any chemotherapy. She does not have any medical records with respect to this. She has done well up until recently with the recent biopsy. She underwent a left mastectomy on 04-19-24; IDC high grade, all margins (-), one SNB (-). Tumor size 10mm. oncotype: 14 right mammogram 01-23-[address] Martinez 11-01-24 tolerating anastrazole Any new lumps masses or nodules of concern in the right breast or on the left chest wall; she is tolerating the anastrazole She was started on prolia for osteoporesis; injection every 6 months Caffeine: 2 cups/day nicotine: none/ stopped 40 years ago; used to smoke < 1 pack/week chocolate: weekly BCP: 3 years hormones: none Family History: paternal aunt: breast cancer Hormonal HIstory: menarche: 13 PO menopause: about 52 Surgical History: left breast lumpectomy left mastectomy and SNB Medical History: none Social History: nicotine: none alcohol: red wine daily, stopped and only occasional drugs: none Review of Systems - Constitutional Reports sweats - EENT Eyes: denies blurred vision Ears: left: decreased hearing, deny: tinnitus Ears, nose, mouth and throat: Denies dysphagia - Breasts bilateral: as per HPI - Cardiovascular Denies chest pain, Denies shortness of breath - Respiratory Denies cough - Gastrointestinal Reports constipation, Reports diarrhea - Genitourinary Genitourinary: Denies dysuria, Denies hematuria Menstruation: Reports postmenopausal - Musculoskeletal Reports myalgias - Integumentary Denies rash, Denies unusual bruising - Neurological Denies headaches, Denies syncope - Psychiatric Reports anxiety - Endocrine Reports fatigue - Hematologic/Lymphatic Reports as per HPI - Allergic/Immunologic Reports seasonal allergies Past Medical History Past Medical History: No Reported History, Cancer Additional Past Medical History / Comment(s): postional vertigo, seasonal allergies. Left brest cancer DCIS 2008? radiation, tamoxifen for 5 years, diagnosed in [place] History of Any Multi-Drug Resistant Organisms: None Reported Additional Past Surgical History / Comment(s): Left breasst biopsy, with lumpectomy 2007. Right breast biopsy benign. Oral surgeries Past Anesthesia/Blood Transfusion Reactions: No Reported Reaction Past Psychological History: Anxiety Smoking Status: Former smoker Past Alcohol Use History: Occasional Additional Past Alcohol Use History / Comment(s): quit smoking in her 20's Past Drug Use History: None Reported Medications and Allergies Home Medications Medication Instructions Recorded Confirmed Type ALPRAZolam [Xanax] 0.25 mg PO BID PRN 02/08/24 02/08/24 History PARoxetine HCL [Paxil] 20 mg PO DAILY 02/08/24 02/26/24 History Allergies Allergy/AdvReac Type Severity Reaction Status Date / Time No Known Allergies Allergy Verified 02/26/24 12:30 Objective - Vital Signs Vital signs: Vital Signs Temp 98.2 F 01/27/25 09:43 Pulse 95 01/27/25 09:43 Resp 18 01/27/25 09:43 BP 149/72 01/27/25 09:43 Pulse Ox 100 01/27/25 09:43 FiO2 Intake & Output 01/26/25 01/27/25 01/27/25 18:59 06:59 18:59 Weight 61.235 kg - Constitutional General appearance: Present: cooperative - EENT Eyes: Present: EOMI ENT: Present: hearing grossly normal - Neck Neck: Present: normal ROM - Respiratory Respiratory: bilateral: CTA - Cardiovascular Rhythm: regular Heart sounds: normal: S1, S2 - Integumentary Integumentary: Present: normal turgor - Musculoskeletal Musculoskeletal: Present: gait normal - Psychiatric Psychiatric: Present: A&O x's 3, appropriate affect, intact judgment & insight - Additional findings Additional findings: Breast Exam: BRA: 36A inspection: left mastectomy palpation: right breast: Multi positional exam fibrocystic changes no dominant masses or nodules of concern Right axilla: No adenopathy of concern Left chest wall: Incision clean and dry no evidence of any recurrence Left axilla: No adenopathy of concern Assessment and Plan Assessment: Impression: Left breast invasive ductal cancer recurremt from 15 years ago invasive ductal carcinoma T1 N0 M0 ER positive ME positive HER2 (-)G2 Prior left breast cancer treated with lumpectomy/radiation therapy/tamoxifen records are not available this was over 15 years ago; left breast mastectomy on anastrazole Plan: Right breast mammogram in January 2026 Follow-up in 6 months Continue anastrozole Continue to follow with medical oncology Follow-up sooner any questions or concerns CC: Dr. Rogers
== END ==
LOC: WWCWWP 09:17
PROVIDERS: ATTEND Surgery
DX: C50.912 Malignant neoplasm of unspecified site of left female breast (principal); Z17.0 Estrogen receptor positive status [ER+]; Z85.3 Personal history of malignant neoplasm of breast; Z17.21 Progesterone receptor positive status; Z98.890 Other specified postprocedural states